=== PATIENT | female | born 1970 | race Caucasian/White ===

== ENCOUNTER 2022-04-24 15:28 | Outpatient (CLI) | payer OTHER, SELFPAY ==
[2022-04-24 14:28] LABS: Chloride* 101 mmol/L (96-114); Potassium* 4.4 mmol/L (3.6-5.1); Sodium* 140 mmol/L (135-149)
[2022-04-24 14:30] LABS: Cholesterol* 200 mg/dL (90-199)
[2022-04-24 14:31] LABS: Blood Urea Nitrogen* 13 mg/dL (7-30); Calcium* 9.8 mg/dL (8.4-10.6); Carbon Dioxide* 33 mmol/L (20-32); Creatinine* 0.6 mg/dL (0.5-1.5); Estimated Glomerular Filt Rate 109 ml/min; Glucose* 93 mg/dL (60-115); HDL Cholesterol* 57 mg/dL (>=50); LDL Cholesterol Calculated 112 mg/dL (<100); Triglycerides* 157 mg/dL (40-149)
== END 2022-04-24 15:29 | disposition home or self-care (01) ==
PROVIDERS: PCP Physician Assistant Medical; Visit Provider Physician Assistant Medical
DX: Z00.00 Encounter for general adult medical examination without abnormal findings (principal); I10 Essential (primary) hypertension; Z13.6 Encounter for screening for cardiovascular disorders
CPT/HCPCS: 80048; 80061

== ENCOUNTER 2022-04-29 13:10 | Outpatient (CLI) | payer OTHER, SELFPAY | END 2022-04-29 13:11 | disposition home or self-care (01) | PROVIDERS: PCP Physician Assistant Medical; Visit Provider Physician Assistant Medical | DX: N95.1 Menopausal and female climacteric states (principal) | CPT/HCPCS: 83001 ==

== ENCOUNTER 2022-07-02 10:45 | Outpatient (CLI) | payer OTHER, SELFPAY | END 2022-07-02 10:46 | disposition home or self-care (01) | LOC: OP CLINIC 10:47 | PROVIDERS: PCP Physician Assistant Medical; Visit Provider Surgery | DX: Z12.11 Encounter for screening for malignant neoplasm of colon (principal); K63.5 Polyp of colon | CPT/HCPCS: 45385; 88305; 99153; J2250; J3010 ==

== ENCOUNTER 2022-12-25 15:19 | Outpatient (CLI) | payer OTHER, SELFPAY ==
--- NOTE | 2022-12-25 15:30 | CRLHL7_ITS ---
For Patients: As a result of the Century Cures Act, medical imaging exams and procedure reports are released immediately into your electronic medical record. You may view this report before your referring provider. If you have questions, please contact your health care provider. INDICATION: Anesthesia of skin on legs. TECHNIQUE: Multiplanar multisequence noncontrast MR images acquired through the lumbar spine. COMPARISON: None. FINDINGS: Mild leftward lumbar curvature. The lumbar lordosis is preserved. Vertebral body heights are maintained. No acute fracture. No T1 hypointense marrow replacing lesions. Normal conus terminates at L1. T12-L1: No spinal canal or neural foraminal narrowing. L1-2: Trace retrolisthesis. Mild disc degeneration. Mild disc height loss. Mild endplate edema. Posterior disc bulging and endplate spondylitic ridging. No spinal canal narrowing. Mild left lateral recess narrowing. No neural foraminal narrowing. L2-3: Mild facet arthropathy. No spinal canal or neural foraminal narrowing. L3-4: Mild to moderate disc degeneration. Shallow posterior disc bulge. Imwc-sw-qfgzmkls facet arthropathy. No spinal canal or neural foraminal narrowing. L4-5: Mild grade 1 anterolisthesis measuring 3 mm. Moderate disc degeneration. Posterior disc bulge. Advanced facet arthropathy. Right facet joint effusion. Mild edema within the bilateral posterior elements. Thickening ligamentum flavum. No spinal canal narrowing. Mild to moderate right and mild left neural foraminal narrowing. L5-S1: Advanced disc degeneration and disc height loss. Posterior disc bulging and endplate spondylitic ridging eccentric to the left. Ccmu-um-eyuzpvpa facet arthropathy. No spinal canal narrowing. Mild left lateral recess narrowing. Moderately severe left and djjw-ga-qrntomji right neural foraminal narrowing. Sacroiliac joint degenerative changes. IMPRESSION: 1. Multilevel lumbar spondylosis without spinal canal stenosis. 2. At L4-5, mild grade 1 anterolisthesis. Mild to moderate right and mild left neural foraminal narrowing. Advanced facet arthropathy. Mild edema within the bilateral posterior elements likely represents a stress response. 3. At L5-S1, moderately severe left and efgy-oj-etmruzsk right neural foraminal narrowing. Dictated by Jacques Coon MD @ 12/26/2022 4:30:04 PM (Electronically Signed)
== END 2022-12-25 15:20 | disposition home or self-care (01) ==
LOC: MRI 15:20
PROVIDERS: PCP Physician Assistant Medical; Visit Provider Physician Assistant Medical
DX: R20.0 Anesthesia of skin (principal); M47.896 Other spondylosis, lumbar region; M51.26 Other intervertebral disc displacement, lumbar region; M51.27 Other intervertebral disc displacement, lumbosacral region
CPT/HCPCS: 72148

== ENCOUNTER 2023-06-30 07:42 | Outpatient (CLI) | payer OTHER, SELFPAY | END 2023-06-30 07:43 | disposition home or self-care (01) | LOC: NFLDREF 07-01 19:01 | PROVIDERS: PCP Physician Assistant Medical; Referring Provider Physician Assistant Medical; Visit Provider Physician Assistant Medical | DX: E66.01 Morbid (severe) obesity due to excess calories (principal); I10 Essential (primary) hypertension; K21.9 Gastro-esophageal reflux disease without esophagitis | CPT/HCPCS: 80053; 80061; 84443 ==

== ENCOUNTER 2023-09-26 14:51 | Outpatient (CLI) | payer OTHER, SELFPAY ==
--- NOTE | 2023-09-26 15:00 | MM_ITS ---
Patient: DULCE COHEN Facility:?[facility] Patient ID:?[id number] Site Patient ID:?[id number]. Site :?[id number] Study:?XRay-Breast Bilateral 3D W/CAD-09/26/2023 3:48:33 PM Ordering Physician:Marie Final Report: BILATERAL SCREENING MAMMOGRAM WITH COMPUTER-AIDED DETECTION AND TOMOSYNTHESIS TECHNIQUE: CC and MLO views were obtained. These mammographic images have been obtained using full-field digital technique. These mammographic images were interpreted with the benefit of computer-aided detection. Breast Tomosynthesis was used in this interpretation. COMPARISON FILM: 05/29/21, 04/04/20, 02/22/19. FINDINGS: There are scattered areas of fibroglandular density. IMPRESSION: There is no radiographic evidence for malignancy. ASSESSMENT: BI-RADS Category 1: Negative RECOMMENDATION: Routine screening mammogram in 1 year. A lay language report of this examination will be provided to the patient. Gabino Gallo M.D. Diagnostic Radiologist [email or web address] DSM/sp R& Transcribed: 3:38 p.m. SP/Dictated by: Gabino Gallo MD @ 09/29/2023 10:18:00 AM Signed by:?Gabino Gallo MD @09/29/2023 3:59:26 PM (Electronic Signature)
== END 2023-09-26 14:52 | disposition home or self-care (01) ==
LOC: MAMMO 14:52
PROVIDERS: PCP Physician Assistant Medical; Visit Provider Physician Assistant Medical
DX: Z12.31 Encounter for screening mammogram for malignant neoplasm of breast (principal)
CPT/HCPCS: 77063; 77067

== ENCOUNTER 2024-08-24 09:18 | Outpatient (CLI) | payer OTHER, SELFPAY ==
[2024-08-26 02:54] LABS: HPV Source Cervical/Vag; HPV, High Risk by TMA Not Detected
== END 2024-08-24 09:19 | disposition home or self-care (01) ==
PROVIDERS: PCP Physician Assistant Medical; Visit Provider Physician Assistant Medical
DX: I10 Essential (primary) hypertension (principal); Z13.228 Encounter for screening for other metabolic disorders; Z13.29 Encounter for screening for other suspected endocrine disorder; Z11.51 Encounter for screening for human papillomavirus (HPV); Z12.4 Encounter for screening for malignant neoplasm of cervix
CPT/HCPCS: 80053; 80061; 84443; 87624; 87625; 88141; 88142

== ENCOUNTER 2024-10-05 18:14 | Outpatient (CLI) | payer OTHER, SELFPAY ==
--- NOTE | 2024-10-05 18:20 | CRLHL7_ITS ---
For Patients: As a result of the Century Cures Act, medical imaging exams and procedure reports are released immediately into your electronic medical record. You may view this report before your referring provider. If you have questions, please contact your health care provider. INDICATION: BILATERAL SCREENING MAMMOGRAM, ASYMPTOMATIC 54 F COMPARISON: 09/26/23, 05/29/21, 04/04/20 TECHNIQUE: CC and MLO views were obtained. These mammographic images have been obtained using full-field digital technique. These mammographic images were interpreted with the benefit of computer aided detection and tomosynthesis. BREAST COMPOSITION: There are scattered areas of fibroglandular density. FINDINGS: No suspicious findings. ASSESSMENT: BI-RADS 1 Negative RECOMMENDATION: Annual screening mammogram. A lay language report of this examination will be provided to the patient. Dictated by: Gabino Gallo MD @ 10/08/2024 12:31:07 (Electronically Signed)
== END 2024-10-05 18:15 | disposition home or self-care (01) ==
LOC: MAMMO 18:15
PROVIDERS: PCP Physician Assistant Medical; Visit Provider Physician Assistant Medical
DX: Z12.31 Encounter for screening mammogram for malignant neoplasm of breast (principal)
CPT/HCPCS: 77063; 77067